=== PATIENT | female | born 1965 | race Caucasian/White ===

== ENCOUNTER 2019-12-30 21:46 | Emergency (ER) | payer BC ==
[2019-12-30 21:56] VITALS: BP 174/102
[2019-12-30] MEDS ORDERED: DIPH/PERTUSS(ACELL)/TETANUS VAC/PF 0.5 ML SYR (>=10YO) IM ONE (22:10)
[2019-12-30] MEDS ORDERED: DIPHENHYDRAMINE HCL 50 MG/ML VIAL IV ONE (22:13)
[2019-12-30] MEDS ORDERED: ONDANSETRON HCL INJ/PF 4 MG/2 ML SDV IV ONE (22:15)
[2019-12-30] MEDS ORDERED: KETOROLAC TROMETHAMINE INJ/PF 30 MG/1 ML SDV IV ONE (22:15)
[2019-12-30] MEDS ORDERED: ANTIVENIN,CROTALIDAE FAB(OVIN) INJ 1 VIAL IV ONE (22:20)
[2019-12-30 22:33] LABS: ABSOLUTE EOSINOPHILS # (AUTO) 0.2 10^3/uL (0.0-0.6); ABSOLUTE LYMPHOCYTES (AUTO) 1.9 10^3/uL (0.5-4.7); ABSOLUTE MONOCYTES (AUTO) 0.5 10^3/uL (0.1-1.4); ABSOLUTE NEUT (AUTO) 2.4 10^3/uL (1.7-8.2); BASOPHILS % (AUTO) 0.7 % (0-2); EOSINOPHILS % (AUTO) 4.9 % (0-6); HEMATOCRIT 40.7 % (36.0-47.0); HEMOGLOBIN 13.8 g/dL (12.0-15.5); LYMPHOCYTES % (AUTO) 37.9 % (13-45); MEAN CORPUSCULAR HEMOGLOBIN 31.5 pg (27.0-33.4); MEAN CORPUSCULAR HGB CONC 33.8 g/dL (32.0-36.0); MEAN CORPUSCULAR VOLUME 93 fl (80-97); MONOCYTES % (AUTO) 9.4 % (3-13); PLATELET COUNT 190 10^3/uL (150-450); RED BLOOD COUNT 4.36 10^6/uL (3.72-5.28); RED CELL DISTRIBUTION WIDTH 13.2 % (11.5-14.0); SEGMENTED NEUTROPHILS % (AUTO) 47.1 % (42-78); TOTAL CELLS COUNTED % (AUTO) 100 %; WHITE BLOOD COUNT 5.1 10^3/uL (4.0-10.5)
[2019-12-30 22:38] LABS: INTERNATIONAL RATION (INR) 0.98; PROTHROMBIN TIME 13.2 SEC (11.4-15.4)
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
[2019-12-30 22:45] LABS: ALBUMIN 4.9 g/dL (3.5-5.0); ALKALINE PHOSPHATASE 57 U/L (38-126); ASPARTATE AMINO TRANSFERASE 27 U/L (14-36); BILIRUBIN,TOTAL 0.5 mg/dL (0.2-1.3); BLOOD UREA NITROGEN 14 mg/dL (7-20); CARBON DIOXIDE 29 mmol/L (22-30); CREATINE KINASE 97 U/L (30-135); GLUCOSE 114 mg/dL (75-110); POTASSIUM 3.6 mmol/L (3.6-5.0); TOTAL PROTEIN 7.8 g/dL (6.3-8.2)
[2019-12-30 22:50] LABS: ANION GAP 6 (5-19); CHLORIDE 103 mmol/L (98-107)
[2019-12-30 22:54] LABS: D-DIMER < 0.27 ug/mL (0.00-0.50)
[2019-12-30] MEDS ORDERED: METHYLPREDNISOLONE INJ 125 MG/2 ML SDV IV ONE (23:53)
[2019-12-30] MEDS ORDERED: DIPHENHYDRAMINE HCL 50 MG/ML VIAL ONE (23:56)
[2019-12-31] MEDS ORDERED: FAMOTIDINE INJ/PF 20 MG/2 ML SDV IV ONE ×2 (00:03)
[2019-12-31] MEDS ORDERED: LORAZEPAM INJ 2 MG/1 ML VIAL IV ONE (00:24)
== END 2019-12-31 00:45 | disposition short-term general hospital (02) ==
LOC: ER 21:46
DX: T63.001A Toxic effect of unspecified snake venom, accidental (unintentional), initial encounter (principal); Y92.007 Garden or yard of unspecified non-institutional (private) residence as the place of occurrence of the external cause; Y93.89 Activity, other specified; R13.10 Dysphagia, unspecified; T50.905A Adverse effect of unspecified drugs, medicaments and biological substances, initial encounter; Y92.238 Other place in hospital as the place of occurrence of the external cause; Z23 Encounter for immunization
CPT/HCPCS: 99285; 90471; 96374; 96375; 36415; 82550; 85025; 85610; 80053; 85379; 90715; J0840; J1200 ×2; J2930; J1885; J2060; J2405; S0028